=== PATIENT | female | born 1975 | race Caucasian/White ===

== ENCOUNTER 2021-09-30 11:42 | Emergency (ER) | payer BC ==
[~2021-09-30] VITALS: Ht 157.5 cm; Wt 108.9 kg
[2021-09-30 12:02] VITALS: BP_SYST 169
[2021-09-30] MEDS ORDERED: NACL 0.9% 1,000 ML IV ONE (12:30)
[2021-09-30] MEDS ORDERED: ONDANSETRON HCL 4 MG/2 ML VIAL IVP ONE (12:30)
[2021-09-30] MEDS ORDERED: KETOROLAC TROMETHAMINE 30 MG VIAL IVP ONE (12:30)
[2021-09-30 12:44] LABS: BASOPHILS # (AUTO) 0.1 K/uL (0.0-0.2); BASOPHILS % (AUTO) 0.9 % (0.0-2.0); EOSINOPHILS # (AUTO) 0.1 K/uL (0.0-0.4); EOSINOPHILS % (AUTO) 1.2 % (0.0-4.0); HEMATOCRIT 39.8 % (36-48); HEMOGLOBIN 13.2 g/dL (12.0-16.0); LYMPHOCYTES % (AUTO) 18.6 % (20.5-51.5); MEAN CORPUSCULAR HEMOGLOBIN 27 pg (27-31); MEAN CORPUSCULAR HGB CONC 33 % (32-36); MEAN CORPUSCULAR VOLUME 83 fL (79.0-98.0); MONOCYTES # (AUTO) 0.5 K/uL (0.0-1.0); NEUTROPHILS # (AUTO) 7.8 K/uL (1.8-7.7); NEUTROPHILS % (AUTO) 74.3 % (40.0-70.0); PLATELET COUNT (AUTO) 405 K/uL (130-430); RED BLOOD CELL COUNT(AUTO) 4.81 MIL/uL (4.2-6.2); RED CELL DISTRIBUTION WIDTH 13.8 % (9.0-15.0); WHITE BLOOD COUNT (AUTO) 10.5 K/uL (4.8-10.8)
[2021-09-30 13:00] LABS: CALCIUM 8.6 mg/dL (8.4-11.0); CREATININE 0.64 mg/dL (0.55-1.30); POTASSIUM 3.8 mmol/L (3.5-5.1)
[2021-09-30 13:14] LABS: TOTAL BILIRUBIN 0.2 mg/dL (0.0-1.0)
[2021-09-30 13:25] LABS: BILIRUBIN,URINE NEGATIVE (NEGATIVE); CLARITY/URINE CLEAR (CLEAR); COLOR,URINE YELLOW (YELLOW); GLUCOSE,URINE NEGATIVE (NEGATIVE); KETONES,URINE NEGATIVE (NEGATIVE); LEUKOCYTE ESTERASE ,URINE TRACE (NEGATIVE); NITRITE, URINE NEGATIVE (NEGATIVE); PH,URINE 6.5 (5.0-8.0); PROTEIN URINE NEGATIVE (NEGATIVE); UROBILINOGEN,URINE 0.2 (0.2-1.0)
[2021-09-30 13:40] LABS: BLOOD, URINE TRACE (NEGATIVE)
[2021-09-30] MEDS ORDERED: CIPR500T5 PO (13:48)
[2021-09-30] MEDS ORDERED: IBUP-1969 PO (13:48)
[2021-09-30 13:52] LABS: BACTERIA,URINE RARE /HPF (None Seen)
[2021-09-30] MEDS ORDERED: cefTRIAXone 1 GM VIAL ONE (13:59)
[2021-09-30] MEDS ORDERED: cefTRIAXone 1 GM in D5W 50 ML IV ONE (14:00)
[2021-09-30 14:39] VITALS: BP_SYST 140
== END 2021-09-30 14:45 | disposition home or self-care (01) ==
LOC: SED 11:42
DX: N39.0 Urinary tract infection, site not specified (principal); Z88.0 Allergy status to penicillin; Z79.899 Other long term (current) drug therapy
CPT/HCPCS: 36415; 74176; 76376; 80053; 81000; 81025; 83690; 85025; 87040; 96361; 96365; 96375; 99284; J0696; J1885; J2405; J7030